=== PATIENT | female | born 1970 | race Caucasian/White ===

== ENCOUNTER → 2018-01-25 12:19 | Outpatient (CLI) | payer SELFPAY | DX: Z23 Encounter for immunization (principal) | CPT/HCPCS: 90471; 90686 ==

== ENCOUNTER → 2018-03-30 12:27 | Outpatient (CLI) | payer OTHER, SELFPAY ==
--- NOTE | 2018-03-30 12:32 | DI.CT.S_ITS ---
PROCEDURE: CT SINUS SCREEN WO CON INDICATIONS: Recurrent sinusitis TECHNIQUE: Noncontrast 3.0 mm axial images acquired from the frontal sinuses to the mid-sella, with coronal and sagittal reformats. For radiation dose reduction, the following was used: automated exposure control, adjustment of mA and/or kV according to patient size. COMPARISON: None. FINDINGS: Image quality: Excellent. Sinuses: There is moderate to severe right and mild to moderate left maxillary sinus mucosal thickening. There is severe opacification of the ethmoid air cells as well as near-complete opacification of the frontal sinuses. Mild to moderate sphenoid sinus mucosal thickening is present. Are occluded bilaterally. Ostiomeatal Complexes: Ostiomeatal complexes are patent. No Nils cells. Miscellaneous: Visualized intra-orbital contents are normal. Middle turbinates are not clearly delineated secondary to significant overlying mucosal thickening. Mild rightward No nasal septal deviation. IMPRESSION: 1. Significant pansinus mucosal thickening with occlusion of the ostiomeatal complexes bilaterally. Dictated by: Vani Daniels M.D. on 03/30/2018 at 12:51 Approved by: Vani Daniels M.D. on 03/30/2018 at 13:07
== END ==
PROVIDERS: Visit Provider Physician Assistant
DX: J32.4 Chronic pansinusitis (principal)
CPT/HCPCS: 70486